=== PATIENT | female | born 2000 | race Two or more races ===

== ENCOUNTER 2025-03-15 15:28 | Emergency (ER) | payer OTHER ==
[~2025-03-15] VITALS: Ht 165.1 cm; Wt 117.9 kg
[2025-03-15] MEDS ORDERED: FAMOTIDINE/PF 20 MG/2 ML VIAL IV STA (18:33)
[2025-03-15] MEDS ORDERED: 0.9 % SODIUM CHLORIDE 1,000 ML IV STA (18:33)
[2025-03-15] MEDS ORDERED: FAMOTIDINE/PF 20 MG/2 ML VIAL ONE (19:51)
[2025-03-15 20:26] LABS: BASO % 0.5 % (0.1-1.2); EOS # 0.15 (0.04-0.54); EOS % 1.5 % (0.7-7.0); LYMPH # 2.01 (1.18-3.74); LYMPH % 19.8 % (19.3-53.1); MEAN PLATELET VOLUME 12.60 fl (9.4-12.4); MONO # 0.41 (0.24-0.82); MONO % 4.0 % (4.7-12.5); NEUT # 7.49 (1.56-6.13); NEUT % 73.7 % (34.0-71.1); RED CELL DISTRIBUTION WIDTH 15.1 % (11.6-14.4)
[2025-03-15 20:53] LABS: URINE APPEARANCE Clear; URINE BILIRRUBIN Negative (NEGATIVE); URINE BLOOD Negative; URINE COLOR Yellow; URINE GLUCOSE Negative (NEGATIVE); URINE KETONE Negative (NEGATIVE); URINE LEUKOCYTE Large; URINE NITRATE Negative; URINE PROTEIN Negative (NEGATIVE); URINE UROBILINOGEN 0.2 E.U./dl
[2025-03-15 20:57] LABS: URINE BACTERIA 2113.9 uL (0.0-1933); URINE EPITHELIAL CELLS 100.7 uL (0.0-38.8); URINE RBC 4.3 uL (0.0-20.8); URINE WBC 98.7 uL (0.0-23.2)
[2025-03-15 20:57] LABS: ALT/SGPT 47.0 U/L (12-78); AST/SGOT 25.0 U/L (15-37); BILIRUBIN TOTAL 0.22 mg/dL (0.3-1.2); BUN CREA RATIO 13.0 (7.0-25.0); CREATININE SERUM 0.72 mg/dL (0.55-1.02); GFR 99.52; GLOBULINA 5.0 G/DL (2.4-3.5); GLUCOSE FASTING 84.0 mg/dL (65-100); OSMOLALITY SERUM 279.0 MOSM/KG (275-295)
[2025-03-15 21:01] LABS: URINE CAST 0.14 uL (0.0-1.40)
[2025-03-15] MEDS ORDERED: CEFTRIAXONE SODIUM 1,000 MG VIAL IM STA (21:23)
[2025-03-15 22:12] LABS: INR 1.05
[2025-03-15] MEDS ORDERED: CEFTRIAXONE SODIUM 1,000 MG VIAL ONE (23:21)
[2025-03-16] MEDS ORDERED: CIPRO500 MG PO
== END 2025-03-16 02:58 | disposition home or self-care (01) ==
LOC: ER 15:29
PROVIDERS: Physician Assistant Medical
DX: N39.0 Urinary tract infection, site not specified (principal); R10.20 Pelvic and perineal pain unspecified side; R82.71 Bacteriuria
CPT/HCPCS: 36415; 74177; Q9965